=== PATIENT | female | born 1970 | race African-American/Black ===

== ENCOUNTER 2025-02-03 17:32 | Emergency (ER) | payer SELFPAY ==
[2025-02-03 18:07] LABS: BASOPHILS ABSOLUTE AUTO 0.03 K/uL (0.00-0.20); BASOPHILS PERCENT AUTO 0.3 % (0.0-1.0); EOSINOPHILS PERCENT AUTO 1.1 % (0.0-6.0); HEMATOCRIT 38.5 % (37.0-47.0); IMMATURE GRAN ABSOLUTE AUTO 0.01 K/uL (0.00-0.05); IMMATURE GRAN PERCENT AUTO 0.1 % (0.0-0.4); LYMPHOCYTES ABSOLUTE AUTO 2.79 K/uL (1.00-4.80); LYMPHOCYTES PERCENT AUTO 31.6 % (24.0-44.0); MEAN CORPUSCULAR HEMOGLOBIN 32.1 pg (28.0-32.0); MEAN CORPUSCULAR HGB CONC 33.8 g/dL (32.0-36.0); MEAN CORPUSCULAR VOLUME 95.1 fL (83.0-99.0); MEAN PLATELET VOLUME 9.1 fL (9.4-12.3); MONOCYTES ABSOLUTE AUTO 0.92 K/uL (0.00-0.80); MONOCYTES PERCENT AUTO 10.4 % (0.0-8.0); NEUTROPHILS ABSOLUTE AUTO 4.99 K/uL (1.80-7.70); NEUTROPHILS PERCENT AUTO 56.5 % (41.0-71.0); PLATELET COUNT,PLT 245 K/uL (150-400); RED BLOOD CELL COUNT 4.05 M/uL (4.10-5.30); WHITE BLOOD CELL COUNT,WBC 8.84 K/uL (3.9-11.3)
[2025-02-03 18:19] LABS: INR 0.96 (0.86-1.11); PTT,PARTIAL THROMBOPLSTIN TIME 24.8 SEC (23.9-30.7)
[2025-02-03 18:47] LABS: ALBUMIN 3.7 g/dL (3.4-5.0); BILIRUBIN TOTAL 0.6 mg/dL (0.2-1.0); CALCIUM 10.5 mg/dL (8.5-10.1); CARBON DIOXIDE,CO2 28.6 mmol/L (21.0-32.0); EST CRCL DRUG DOSING (CG) 47.4 mL/min; MAGNESIUM 1.7 mg/dL (1.8-2.4); PROTEIN TOTAL,TP 7.5 g/dL (6.4-8.2)
[2025-02-03 19:10] LABS: BILIRUBIN,URINE NEGATIVE (NEGATIVE); COLOR,URINE YELLOW; GLUCOSE,URINE NEGATIVE (NEGATIVE); KETONES,URINE 15 mg/dL (NEGATIVE); LEUKOCYTE ESTERASE,URINE TRACE (NEGATIVE); NITRITE,URINE NEGATIVE (NEGATIVE); OCCULT BLOOD,URINE MODERATE (NEGATIVE); PH,URINE 5.5 (5.0-8.0); PROTEIN,URINE NEGATIVE (NEGATIVE); UROBILINOGEN,URINE 0.2 EU/dL (<2.0)
[2025-02-03 19:11] LABS: APPEARANCE,URINE SLT CLOUDY
[2025-02-03 19:17] LABS: BACTERIA,URINE 1+ (NEGATIVE); MUCUS,URINE LIGHT (NONE-MOD); SQUAMOUS EPITHELIAL CELLS,UR FEW
[2025-02-03] MEDS ORDERED: Morphine 2 MG/ML SYRINGE IVPUSH PRN (19:43)
[2025-02-03] MEDS: Lactated Ringers 1,000 ML IV SCH (19:50)
[2025-02-03] MEDS: Ondansetron 4 MG/2 ML SDV IVPUSH ONE (19:52)
[2025-02-03] MEDS: Morphine 2 MG/ML SYRINGE IVPUSH ONE (19:52)
[2025-02-03] MEDS: Iopamidol 755 Mg/ML 100 ML Bottle IVPUSH ONE (20:41)
[2025-02-03] MEDS: Ketorolac 30 MG/ML SDV IVPUSH ONE (21:11)
[2025-02-03] MEDS: cefTRIAXone 2 GM in Water For Injection, Sterile 20 ML IVPUSH ONE (22:03)
[2025-02-03] MEDS: Doxycycline 100 MG in Sodium Chloride 0.9% 100 ML IV SCH (22:05)
== END 2025-02-03 23:12 | disposition home or self-care (01) ==
LOC: MW.ED 17:32
DX: I71.21 Aneurysm of the ascending aorta, without rupture (principal); I27.20 Pulmonary hypertension, unspecified; J18.9 Pneumonia, unspecified organism; N39.0 Urinary tract infection, site not specified; K76.9 Liver disease, unspecified; E86.0 Dehydration; Z79.899 Other long term (current) drug therapy; Z75.3 Unavailability and inaccessibility of health-care facilities
CPT/HCPCS: 36415; 71045; 71260; 74177; 80053; 81001; 83690; 83735; 83880; 84484; 85025; 85610; 85730; 87040; 87086; 93005; 96361; 96365; 96375; 99285; J0696; J1885; J2270; J2405; J3490; J7120; Q9967; 93010; 99284

== ENCOUNTER 2025-02-28 06:28 | Emergency (ER) | payer SELFPAY ==
[2025-02-28] MEDS ORDERED: Sodium Chloride 0.9% 10 ML Syringe FLUSH PRN (06:34)
[2025-02-28] MEDS ORDERED: Sodium Chloride 0.9% 2.5 ML Syringe FLUSH PRN (06:34)
[2025-02-28] MEDS: Ondansetron 4 MG/2 ML SDV IVPUSH ONE (06:45)
[2025-02-28 06:47] LABS: BASOPHILS ABSOLUTE AUTO 0.02 K/uL (0.00-0.20); BASOPHILS PERCENT AUTO 0.2 % (0.0-1.0); EOSINOPHILS ABSOLUTE AUTO 0.12 K/uL (0.00-0.45); EOSINOPHILS PERCENT AUTO 1.4 % (0.0-6.0); IMMATURE GRAN ABSOLUTE AUTO 0.02 K/uL (0.00-0.05); IMMATURE GRAN PERCENT AUTO 0.2 % (0.0-0.4); LYMPHOCYTES ABSOLUTE AUTO 3.77 K/uL (1.00-4.80); LYMPHOCYTES PERCENT AUTO 42.6 % (24.0-44.0); MEAN PLATELET VOLUME 9.6 fL (9.4-12.3); MONOCYTES ABSOLUTE AUTO 0.80 K/uL (0.00-0.80); MONOCYTES PERCENT AUTO 9.0 % (0.0-8.0); NEUTROPHILS ABSOLUTE AUTO 4.12 K/uL (1.80-7.70); NEUTROPHILS PERCENT AUTO 46.6 % (41.0-71.0); NRBC ABSOLUTE 0.00 K/uL (0.00-0.02); NRBC PERCENT 0.0 /100WBC (0.0-0.2); PLATELET COUNT,PLT 271 K/uL (150-400); RED BLOOD CELL COUNT 3.77 M/uL (4.10-5.30); WHITE BLOOD CELL COUNT,WBC 8.85 K/uL (3.9-11.3)
[2025-02-28] MEDS: Ketorolac 30 MG/ML SDV IVPUSH ONE (06:47)
[2025-02-28] MEDS: Iopamidol 755 Mg/ML 100 ML Bottle IVPUSH ONE (07:10)
[2025-02-28 07:12] LABS: A/G RATIO 1.0 (0.9-1.6); ALANINE AMINOTRANSFERASE,ALT 79.0 IU/L (14-63); ASPARTATE AMNIOTRANSFERASE,AST 33.0 IU/L (15-37); BILIRUBIN TOTAL 0.5 mg/dL (0.2-1.0); BLOOD UREA NITROGEN,BUN 16.0 mg/dL (7.0-18.0); CARBON DIOXIDE,CO2 27.0 mmol/L (21.0-32.0); CHLORIDE,CL 107.0 mmol/L (98-107); CREATININE 1.0 mg/dL (0.6-1.0); EST CRCL DRUG DOSING (CG) 51.96 mL/min; GLUCOSE RANDOM 106.0 mg/dL (74-106); POTASSIUM,K 3.9 mmol/L (3.5-5.1); PROTEIN TOTAL,TP 7.3 g/dL (6.4-8.2); SODIUM,NA 142.0 mmol/L (136-145)
[2025-02-28 07:16] LABS: ESTIMATED GFR 66.0 mL/min (>60)
[2025-02-28 07:52] LABS: APPEARANCE,URINE CLEAR; GLUCOSE,URINE NEGATIVE (NEGATIVE); OCCULT BLOOD,URINE SMALL (NEGATIVE)
[2025-02-28 08:01] LABS: EPITHELIAL CELLS,URINE RARE (NONE-FEW)
== END 2025-02-28 10:13 | disposition home or self-care (01) ==
LOC: MW.ED 06:28
DX: R10.9 Unspecified abdominal pain (principal); R11.0 Nausea; Z79.899 Other long term (current) drug therapy
CPT/HCPCS: 36415; 74177; 80053; 81001; 83690; 84484; 85025; 93005; 96374; 96375; 99285; A9270; J1885; J2405; J7030; Q9967; 93010; 99283